=== PATIENT | female | born 1990 | race Two or more races ===

== ENCOUNTER → 2024-03-08 | Outpatient (CLI) | payer MEDICAID, SELFPAY ==
--- NOTE | 2024-03-08 15:00 | XR_ITS ---
Examination: Ultrasound soft tissue extremity right arm elbow Exam date and time: March 08, 2024 1503 hours INDICATIONS: Palpable lump in the right upper arm noticed beginning one month ago FINDINGS: No cystic or solid mass noted IMPRESSION: No cystic or solid mass noted Consider follow-up MRI soft tissue arm at the area concern, without intravenous contrast
== END | disposition home or self-care (01) ==
PROVIDERS: Referring Provider Physician Assistant Medical; Visit Provider Physician Assistant Medical
DX: R22.9 Localized swelling, mass and lump, unspecified (principal)
CPT/HCPCS: 76882

== ENCOUNTER → 2024-07-23 | Outpatient (CLI) | payer MEDICAID, SELFPAY ==
[2024-07-22 17:19] LABS: HCG Qualitative,Urine Negative
--- NOTE | 2024-07-23 15:30 | XR_ITS ---
Examination: MRI right shoulder with intravenous contrast Exam date and time:July 23, 2024 1559 hours. INDICATIONS: Injury to the shoulder 2 months ago with shoulder pain Technique: Multiple axial, sagittal and coronal sections of the shoulder have been obtained. Siemens high-resolution 1.5 Kathy, MRI scanner is utilized. Axial fat suppressed sections, TR 2350, TE 18. T1 weighted coronal images, TR 500, TE 15. T2-weighted sagittal fat saturated images, TR 3500, TE 57 T1 weighted sagittal sections, TR 504, TE 13. Post intravenous administration 16 cc gadolinium. Findings: Rotator cuff intact Long head biceps is in the bicipital groove. No tear of biceps superior labral anchor is seen. Retraction musculotendinous junction rotator cuff is not seen Tendinosis pattern mild Atrophy supraspinatus muscle is not significant Atrophy infraspinatus muscle is mild seen Horizontal acromion. Acromioclavicular joint intact. Os acromiale is not identified. Labral margins appear intact Bony glenoid fossa no osseous defect. Avascular necrosis is not seen. Defect posterolateral margin humeral head not seen. Impression: Rotator cuff intact No labral tear
== END | disposition home or self-care (01) ==
PROVIDERS: PCP Physician Assistant Medical; Referring Provider Physician Assistant Medical; Visit Provider Physician Assistant Medical
DX: S49.91XA Unspecified injury of right shoulder and upper arm, initial encounter (principal); X58.XXXA Exposure to other specified factors, initial encounter; Z32.00 Encounter for pregnancy test, result unknown
CPT/HCPCS: 73222; 81025; A9579

== ENCOUNTER 2025-03-04 10:00 | Day surgery (SDC) | payer MEDICAID, SELFPAY ==
[2025-03-03 06:37] VITALS: BMI 33.3
[2025-03-03 08:57] LABS: Basophils # (Auto) 0.0 Thou/mm3 (0.0-0.2); Basophils % (Auto) 0 % (0-2.5); Eosinophils # (Auto) 0.1 Thou/mm3 (0.0-0.5); Eosinophils % (Auto) 1 % (0-10); Hematocrit 37.7 % (36.0-46.0); Hemoglobin 12.2 g/dL (12.0-16.0); Immature Granulocytes Auto 0.02 Thou/mm3 (0.00-0.00); Lymphocytes # (Auto) 2.7 Thou/mm3 (1.0-4.8); Lymphocytes % (Auto) 31 % (10-50); Mean Corpuscular HGB Conc 32.4 g/dl (31.0-37.0); Mean Corpuscular Hemoglobin 29.6 pg (25.0-35.0); Mean Corpuscular Volume 92 fL (80-100); Monocytes # (Auto) 0.6 Thou/mm3 (0.0-0.8); Monocytes % (Auto) 7 % (0-12); Neutrophils # (Auto) 5.2 Thou/mm3 (1.8-7.7); Neutrophils % (Auto) 61 % (37-80); Nucleated Red Blood Cell # 0.00 Thou/mm3 (0.00-0.00); Nucleated Red Blood Cell % 0 /100 WBC (0); Platelet Count 230 Thou/mm3 (140-440); RDW Standard Deviation 44.8 fL (36.4-46.3); Red Blood Count 4.12 Miln/mm3 (4.00-5.20); White Blood Count 8.6 Thou/mm3 (3.6-11.0)
[2025-03-03 09:24] LABS: INR 1.0 (0.9-1.3); Partial Thromboplastin Time 28.0 Seconds (22.0-36.0); Prothrombin Time 10.3 Seconds (9.0-12.2)
[2025-03-03 09:30] LABS: Alanine Aminotransferase < 7 U/L (10-49); Albumin, Serum 4.1 gm/dL (3.5-5.0); Albumin/Globulin Ratio 1.5 (1.2-2.2); Alkaline Phosphatase 94 U/L (46-116); Anion Gap 10 (7-16); Aspartate Amino Transferase < 8 U/L (0-34); BUN/Creatinine Ratio 23 Ratio (12-20); Bilirubin,Total 0.6 mg/dL (0.3-1.2); Blood Urea Nitrogen 14 mg/dL (9-23); Calcium 8.7 mg/dL (8.3-10.6); Calcium (Corrected) 8.7 mg/dL (8.5-10.1); Carbon Dioxide 26.3 mMol/L (20.0-31.0); Chloride 106 mMol/L (98-107); Creatinine (Component) 0.6 mg/dL (0.6-1.3); Estimated Creatinine Clearance 135.4 mL/min (>60); Globulin 2.8 gm/dL (2.3-3.5); Glucose 100 mg/dL (74-106); HCG,Qualitative Serum Negative; Osmolality,Calculated 283 (275-295); Potassium 3.8 mMol/L (3.4-5.1); Sodium 142 mMol/L (136-145); Total Protein 6.9 gm/dL (5.7-8.2); eGFR > 60 See Note
[2025-03-04] VITALS (8 sets, daily range): BP systolic 113–128; BP diastolic 67–82; PULSE 72–87; RESP 12–20; TEMP 36.2–36.5; O2SAT 99–100; BMI 32.7
--- NOTE | 2025-03-04 13:50 | ESOP_ITS ---
Date of Procedure 03/04/25 Pre Op Diagnosis Symptomatic cholelithiasis with recurrent biliary colic Post Op Diagnosis Same Procedure Laparoscopic cholecystectomy Findings Patient was found to have noninflamed gallbladder with 2 small stones Procedure Description After endotracheal anesthesia was given the patient was placed in supine positi on and the abdomen was prepped with chloroprep solution and draped in a sterile manner. After time out was performed I injected a few cc of of half percent Marcaine with epinephrine below the umbilicus and I made an incision for about 3 cm in length. The fascia was cleaned and Veress needle was inserted to create a pneumoperitoneum up to 15 mmHg. Then introduced a 12 mm trocar and a 10 mm camera through the fascia and I inspected the intra-abdominal organs as well as the gallbladder and the liver. Another 5 mm trocar was inserted in the epigastric region under direct vision after injecting some local anesthesia. At this time the patient was kept in reverse Trendelenburg position with the left lateral tilt. The third 5 mm trocar was inserted over the mid axillary line under direct vision and a Damian and Harriet grasper was used to hold the fundus of the gallbladder. The retraction was carried out by the operations administrative assistant moving the fundus of the gallbladder towards the right shoulder of the patient to create enough traction. I placed a another 5 mm trocar in the midaxillary line just lateral to the rectus muscle under direct vision. I used a fenestrated grasper to retract the neck of the gallbladder laterally towards the patient's right hip. The Calot's triangle was exposed and I achieved the critical view of safety as follows: I dissected out the fatty tissue from the hepatocystic triangle and cleared this area. I also dissected inferior and posterior to the gallbladder to identify the cystic duct and the gallbladder wall. Then superiorly I dissected along the cystic plate up to lower one third third of the gallbladder to lift the gallbladder from the liver. At this time I confirmed that only 2 structures entering the gallbladder were cystic artery and the cystic duct. The common duct was seen distally but no dissection was carried out around the duct. I did not see any need for operative cholangiogram in this patient. The cystic duct was clipped doubly and then divided and cystic artery was similarly dealt with. Then the gallbladder was removed from the liver bed using Harmonic wilfred to control the small blood vessels as the dissection proceeded. Then the gallbladder was from the liver bed completely and delivered through the umbilical port using an Endopouch. The liver bed was coagulated with cautery to obtain satisfactory hemostasis. The patient was found to have a small umbilical hernia which was repaired at the same time. The trocars were pulled out from the abdominal cavity and the fascia at the umbilical incision was closed with interrupted 0 Ethibond. Subcutaneous tissues was closed with 3-0 chromic and injected a few cc of half percent Marcaine with epinephrine and the skin was closed with interrupted 4-0 nylon stitches at all the trocar sites. Dressing was applied with 2 x 2 and Tegaderm. Patient tolerated the procedure well and returned to recovery room in stable condition. Anesthesia GETA Pathology / specimen Other IVF Infused 1,200 Estimated Blood Loss 30 Surgeon Ludwig Duval MD Surgical Staff Operation Date: 03/04/25 12:15 Case Staff Anesthesiologist: Franky Jack RN First Assistant: Lesley Doll RNmanager floor: Rebecca Kumar
--- NOTE | 2025-03-04 14:02 | SUR.PHASEI ---
1350: Pt received in [facility] via [facility]. Report from Krzysztof CAN and Dr. Rowley. Pt groggy but moving about on gurkenneth. Encouraged to remain still. Not cooperative. Resp even, unlabored. VS stable. Dressing to abdomen x4 dry, clean, intact.
--- NOTE | 2025-03-04 14:05 | SUR.PHASEI ---
pt awake, moving about in gurblanchard, breathing unlabored, dressing to abdomen clean, dry, and intact, pt states pain 12/31-will medicate per orders, report from Lucy RN
[2025-03-04] MEDS: fentaNYL CIT INJ 50 mCg/ML AMP 2ML 25 MCG IVP ×3 (14:08→14:28)
--- NOTE | 2025-03-04 14:32 | SUR.PHASEII ---
pt tolerating ice chips without difficulty swallowing or n/v.
--- NOTE | 2025-03-04 15:00 | SUR.PHASEII ---
pt awake, alert, able to follow commands, breathing unlabored, dressing to abdomen clean, dry, and intact, pt able to ambulate to bathroom with steady gait, pt able to dress self with minimal assistance, report to Lucy CAN
--- NOTE | 2025-03-04 15:33 | SUR.PHASEII ---
1500: Assumed care. Pt fully awake, oriented x3. VS stable. Dressing remain dry, clean, intact. Assisted to restroom. Ambulation steady. Pt dressed and assisted to transport chair. Pt expressed some pain with movement but level is tolerable. 1516: Pt and mother stated understanding of discharge instructions. Verified with pt that she has her pain medications at home. Pt discharged from [facility] in stable condition.
== END 2025-03-04 15:16 | disposition home or self-care (01) ==
PROVIDERS: Anesthesiology; PCP Physician Assistant Medical; Referring Provider Surgery; Visit Provider Surgery
PROC: 0FT44ZZ Resection of Gallbladder, Percutaneous Endoscopic Approach (ICD-10-PCS; CPT 47562; principal; 2025-03-04 12:00)
DX: K80.10 Calculus of gallbladder with chronic cholecystitis without obstruction (principal)
CPT/HCPCS: 45378; 36415; 80053; 84703; 85025; 85610; 85730; A4217; A4649; J0131; J1100; J1885; J2250; J2405; J2704; J3010; J3490